=== PATIENT | female | born 1945 | race Caucasian/White ===

== ENCOUNTER 2016-08-10 13:44 | Observation (INO) | payer OTHER ==
[~2016-08-10] VITALS: Ht 157.5 cm; Wt 70.9 kg
[2016-08-10] VITALS (11 sets, daily range): BP systolic 167–200; BP diastolic 51–78; PULSE 64–74; RESP 16–18; TEMP 97.8–98.6; O2SAT 96–99
[~2016-08-10 13:44] MED LIST: 1-ME1LIQ PO; ALAV10TA PO; ASPI81TA82 PO; BACL10TA PO; CHOL1CAP6 PO; COZA100T PO; GLIP5 PO; GLUC10TA3 PO; HIGHTAB3 PO; JANU100T PO; LEFL20 PO; LEVO75TA3 PO; LOVA20TA PO; METF500 PO; OMEP20TA39 PO; SPIR25TA PO; TYLE650T4 PO; ULTR50TA PO; VENTAER INH
[2016-08-10] MEDS ORDERED: SODIUM CHLORIDE 0.9% FLUSH 5 ML FLUSH IVF PRN (14:15)
[2016-08-10] MEDS ORDERED: GLIP5TAB8 PO (14:23)
[2016-08-10] MEDS ORDERED: METF1000 PO (14:23)
[2016-08-10] MEDS ORDERED: SPIR25TA PO (14:23)
[2016-08-10] MEDS ORDERED: OMEP40CA2 PO (14:23)
[2016-08-10] MEDS ORDERED: CHOL1TAB42 (14:23)
[2016-08-10] MEDS ORDERED: LEVO75TA3 PO (14:23)
[2016-08-10] MEDS ORDERED: LOSA100T PO (14:23)
[2016-08-10] MEDS ORDERED: AMLO10TA2 PO (14:23)
--- NOTE | 2016-08-10 14:28 | PD ---
HPI Chief Complaint: Abnormal Results Time Seen by Provider: 13:58 Travel History International Travel<30 days: No Contact w/Intl Traveler<30days: No Traveled to known affect area: No History of Present Illness HPI Patient 70-year-old female with history of iron deficiency anemia and cirrhosis of the liver presents to emergency department today for hemoglobin of 7.6. Patient is followed by Do Sheikh she had repeat routine lab work the other day and was sent to the emergency department today after the results show that she had a low hemoglobin. 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 Patient denies any diarrhea nausea emesis blood in the stool or melanotic stools recently. She states that she has been feeling a little weak. No fevers. PFSH Past Medical History Arthritis: Yes (PSORIATIC) Autoimmune Disease: Yes Cardiovascular Problems: Yes (HTN) High Cholesterol: Yes Diabetes: Yes (TYPE 2) Patient Takes Glucophage: Yes Diminished Hearing: No GERD: Yes (ESOPHAGEAL VARICES) Hypertension: Yes Musculoskeletal: Yes Immunizations Current: Yes Thyroid Disease: Yes Tetanus Vaccination: < 5 Years Influenza Vaccination: Yes ?: Not Tubal Ligation: Yes Past Surgical History Cholecystectomy: Yes Oral Surgery: Yes Social History Alcohol Use: No Tobacco Use: No Substance Use: No Allergies-Medications (Allergen,Severity, Reaction): Coded Allergies: Erythromycins (Verified Allergy, Severe, VOMITING, 08/10/16) Penicillin (Verified Allergy, Mild, hives, 08/10/16) Sulfa (Verified Allergy, Mild, hives, 08/10/16) Reported Meds & Prescriptions Reported Meds & Active Scripts Active Reported Vitamin D-3 (Cholecalciferol) 2,000 Unit Tab Omeprazole 40 Mg Cap 40 Mg PO DAILY Glipizide 5 Mg Tab 5 Mg PO BIDAC Take 30 minutes before a meal Spironolactone 25 Mg Tab 25 Mg PO DAILY Amlodipine (Amlodipine Besylate) 10 Mg Tab 10 Mg PO DAILY Metformin (Metformin HCl) 1,000 Mg Tab 1,000 Mg PO BIDPC With meals Levothyroxine (Levothyroxine Sodium) 75 Mcg Tab 75 Mcg PO DAILY Losartan (Losartan Potassium) 100 Mg Tab 100 Mg PO DAILY Review of Systems Except as stated in HPI: all other systems reviewed are Neg Physical Exam Narrative GENERAL: [Well-developed well-nourished no apparent distress, quite pleasant SKIN: Warm and dry. HEAD: Atraumatic. Normocephalic. EYES: Pupils equal and round. No scleral icterus. No injection or drainage. ENT: No nasal bleeding or discharge. Mucous membranes pink and moist. NECK: Trachea midline. No JVD. CARDIOVASCULAR: Regular rate and rhythm. No murmur appreciated. RESPIRATORY: No accessory muscle use. Clear to auscultation. Breath sounds equal bilaterally. GASTROINTESTINAL: Abdomen soft, non-tender, nondistended. Hepatic and splenic margins not palpable. MUSCULOSKELETAL: No obvious deformities. No clubbing. No cyanosis. No edema. NEUROLOGICAL: Awake and alert. No obvious cranial nerve deficits. Motor grossly within normal limits. Normal speech. PSYCHIATRIC: Appropriate mood and affect; insight and judgment normal. Data Data Last Documented VS Vital Signs Date Time Temp Pulse Resp B/P Pulse Ox O2 Delivery O2 Flow Rate FiO2 08/10/16 14:17 99 Room Air 08/10/16 13:50 98.3 74 18 178/51 Orders Complete Blood Count With Diff (08/10/16 14:11) Comprehensive Metabolic Panel (08/10/16 14:11) Prothrombin Time / Inr (Pt) (08/10/16 14:11) Act Partial Throm Time (Ptt) (08/10/16 14:11) Urinalysis - C+S If Indicated (08/10/16 14:11) Iv Access Insert/Monitor (08/10/16 14:11) Ecg Monitoring (08/10/16 14:11) Oximetry (08/10/16 14:11) Sodium Chloride 0.9% Flush (Ns Flush) (08/10/16 14:15) Red Blood Cells (Rbc) (08/10/16 15:46) Blood Product Administration .UPON TRANSFUSION (08/10/16 15:46) Sodium Chlor 0.9% 250 Ml Inj (Ns 250 Ml (08/10/16 16:00) Red Blood Cells (Rbc) (08/10/16 16:01) Type And Screen (08/10/16 16:01) Labs Laboratory Tests Test 08/10/16 08/10/16 14:30 14:40 Urine Collection Type VOIDED Urine Color YELLOW Urine Turbidity CLEAR Urine pH 6.0 Urine Specific [place] 1.011 Urine Protein NEG mg/dL Urine Glucose (UA) 100 mg/dL Urine Ketones NEG mg/dL Urine Occult Blood NEG Urine Nitrite NEG Urine Bilirubin NEG Urine Leukocyte Esterase NEG Urine WBC 0-2 /hpf Urine Squamous Epithelial 6-8 /hpf Cells Urine Bacteria RARE /hpf Urine Yeast (Budding) RARE Microscopic Urinalysis Comment CULT NOT INDICATED White Blood Count 8.0 TH/MM3 Red Blood Count 3.29 MIL/MM3 Hemoglobin 7.9 GM/DL Hematocrit 24.7 % Mean Corpuscular Volume 75.0 FL Mean Corpuscular Hemoglobin 24.1 PG Mean Corpuscular Hemoglobin 32.1 % Concent Red Cell Distribution Width 18.1 % Platelet Count 176 TH/MM3 Mean Platelet Volume 8.8 FL Neutrophils (%) (Auto) 75.9 % Lymphocytes (%) (Auto) 12.7 % Monocytes (%) (Auto) 9.2 % Eosinophils (%) (Auto) 1.5 % Basophils (%) (Auto) 0.7 % Neutrophils # (Auto) 6.1 TH/MM3 Lymphocytes # (Auto) 1.0 TH/MM3 Monocytes # (Auto) 0.7 TH/MM3 Eosinophils # (Auto) 0.1 TH/MM3 Basophils # (Auto) 0.1 TH/MM3 CBC Comment AUTO DIFF Differential Comment AUTO DIFF CONFIRMED Platelet Estimate NORMAL Platelet Morphology Comment NORMAL Ovalocytes 1+ Prothrombin Time 12.4 SEC Prothromb Time International 1.1 RATIO Ratio Activated Partial 25.9 SEC Thromboplast Time Sodium Level 140 MEQ/L Potassium Level 3.9 MEQ/L Chloride Level 107 MEQ/L Carbon Dioxide Level 19.9 MEQ/L Anion Gap 13 MEQ/L Blood Urea Nitrogen 13 MG/DL Creatinine 0.96 MG/DL Estimat Glomerular Filtration 58 ML/MIN Rate Random Glucose 185 MG/DL Calcium Level 9.3 MG/DL Total Bilirubin 1.2 MG/DL Aspartate Amino Transf 32 U/L (AST/SGOT) Alanine Aminotransferase 22 U/L (ALT/SGPT) Alkaline Phosphatase 91 U/L Total Protein 7.3 GM/DL Albumin 3.5 GM/DL [facility] Medical Decision Making Medical Screen Exam Complete: Yes Emergency Medical Condition: Yes Allan Alvarado MD Aug 10, 2016 14:27
[2016-08-10 15:07] LABS: AUTOMATED NEUTROPHIL # 6.1 TH/MM3 (1.8-7.7); BASOPHIL # 0.1 TH/MM3 (0-0.2); BASOPHIL % 0.7 % (0.0-2.0); EOSINOPHIL # 0.1 TH/MM3 (0-0.4); EOSINOPHIL % 1.5 % (0.0-4.0); HEMATOCRIT 24.7 % (35.0-46.0); LYMPH % 12.7 % (9.0-44.0); MEAN CORPUSCULAR HEMOGLOBIN 24.1 PG (27.0-34.0); MEAN CORPUSCULAR HGB CONC 32.1 % (32.0-36.0); MONO % 9.2 % (0.0-8.0); NEUT % 75.9 % (16.0-70.0); PLATELET COUNT 176 TH/MM3 (150-450); RED BLOOD COUNT 3.29 MIL/MM3 (4.00-5.30); RED CELL DISTRIBUTION WIDTH 18.1 % (11.6-17.2)
[2016-08-10 15:08] LABS: BLOOD, URINE NEG (NEG); GLUCOSE,URINE 100 mg/dL (NEG); KETONE, URINE NEG (NEG); NITRITE,URINE NEG (NEG)
[2016-08-10 15:13] LABS: HEMO FLAGS AUTO DIFF
[2016-08-10 15:26] LABS: CHLORIDE 107 MEQ/L (98-107); POTASSIUM 3.9 MEQ/L (3.5-5.1); SODIUM (NA) 140 MEQ/L (136-145)
[2016-08-10 15:29] LABS: ANION GAP 13 MEQ/L (5-15); APTT (PATIENT) 25.9 SEC (24.3-30.1); BICARBONATE 19.9 MEQ/L (21.0-32.0); INTERNATIONAL NORMALIZED RATIO 1.1 RATIO; PROTHROMBIN TIME - PATIENT 12.4 SEC (9.8-11.6)
[2016-08-10 15:30] LABS: BLOOD UREA NITROGEN 13 MG/DL (7-18)
[2016-08-10 15:32] LABS: ALT (GPT) 22 U/L (10-53); AST (GOT) 32 U/L (15-37)
[2016-08-10 15:33] LABS: GLOMERULAR FILTRATION RATE 58 ML/MIN (>89)
[2016-08-10 15:34] LABS: TOTAL BILIRUBIN ADULT 1.2 MG/DL (0.2-1.0)
[2016-08-10 15:34] LABS: METHOD OF COLLECTION VOIDED; URINE COLOR YELLOW (YELLW/STRAW)
[2016-08-10 15:35] LABS: BACTERIA, URINE RARE /hpf; WBC, URINE 0-2 /hpf (0-5)
[2016-08-10 15:35] LABS: ALKALINE PHOSPHATASE 91 U/L (45-117)
[2016-08-10 15:36] LABS: COMMENT (UR) CULT NOT INDICATED; CULTURE IF INDICATED CULT NOT INDICATED
[2016-08-10 15:46] LABS: OVALOCYTES 1+ (NORMAL); PLATELET ESTIMATE SMEAR NORMAL (NORMAL); PLATELET MORPHOLOGY NORMAL (NORMAL); SCAN/DIFF AUTO DIFF CONFIRMED
[2016-08-10] MEDS ORDERED: SODIUM CHLOR 0.9% 250 ML INJ 250 ML IV ONE (16:00)
--- NOTE | 2016-08-10 16:20 | PD ---
HPI Chief Complaint: Abnormal Results Time Seen by Provider: 13:58 Travel History International Travel<30 days: No Contact w/Intl Traveler<30days: No Traveled to known affect area: No History of Present Illness HPI Patient is a 70-year-old female presents to emergency department today for evaluation of low hemoglobin. Patient states that she had routine laboratory drawn by her primary care physician on Wednesday (2 days ago) and hemoglobin at that time was 7.4. She received the results today and was told to come to the emergency department by her primary care physician. Patient states she's been having some mild weakness but denies any emesis denies any blood in the stool or dark stool. Patient states that she has had have recurrent endoscopies out of [place] secondary to insurance reasons. 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 Geraldine aBin. [facility] Past Medical History Arthritis: Yes (PSORIATIC) Autoimmune Disease: Yes Cardiovascular Problems: Yes (HTN) High Cholesterol: Yes Diabetes: Yes (TYPE 2) Patient Takes Glucophage: Yes Diminished Hearing: No GERD: Yes (ESOPHAGEAL VARICES) Hypertension: Yes Musculoskeletal: Yes Immunizations Current: Yes Thyroid Disease: Yes Tetanus Vaccination: < 5 Years Influenza Vaccination: Yes ?: Not Tubal Ligation: Yes Past Surgical History Cholecystectomy: Yes Oral Surgery: Yes Social History Alcohol Use: No Tobacco Use: No Substance Use: No Allergies-Medications (Allergen,Severity, Reaction): Coded Allergies: Erythromycins (Verified Allergy, Severe, VOMITING, 08/10/16) Penicillin (Verified Allergy, Mild, hives, 08/10/16) Sulfa (Verified Allergy, Mild, hives, 08/10/16) Reported Meds & Prescriptions Reported Meds & Active Scripts Active Reported Vitamin D-3 (Cholecalciferol) 2,000 Unit Tab Omeprazole 40 Mg Cap 40 Mg PO DAILY Glipizide 5 Mg Tab 5 Mg PO BIDAC Take 30 minutes before a meal Spironolactone 25 Mg Tab 25 Mg PO DAILY Amlodipine (Amlodipine Besylate) 10 Mg Tab 10 Mg PO DAILY Metformin (Metformin HCl) 1,000 Mg Tab 1,000 Mg PO BIDPC With meals Levothyroxine (Levothyroxine Sodium) 75 Mcg Tab 75 Mcg PO DAILY Losartan (Losartan Potassium) 100 Mg Tab 100 Mg PO DAILY Review of Systems Except as stated in HPI: all other systems reviewed are Neg Physical Exam Narrative GENERAL: Well-developed well-nourished quite pleasant in no apparent distress. SKIN: Warm and dry. HEAD: Atraumatic. Normocephalic. EYES: Pupils equal and round. No scleral icterus. No injection or drainage. ENT: No nasal bleeding or discharge. Mucous membranes pink and moist. NECK: Trachea midline. No JVD. CARDIOVASCULAR: Regular rate and rhythm. No murmur appreciated. RESPIRATORY: No accessory muscle use. Clear to auscultation. Breath sounds equal bilaterally. GASTROINTESTINAL: Abdomen soft, non-tender, nondistended. Hepatic and splenic margins not palpable. MUSCULOSKELETAL: No obvious deformities. No clubbing. No cyanosis. No edema. NEUROLOGICAL: Awake and alert. No obvious cranial nerve deficits. Motor grossly within normal limits. Normal speech. PSYCHIATRIC: Appropriate mood and affect; insight and judgment normal. Data Data Last Documented VS Vital Signs Date Time Temp Pulse Resp B/P Pulse Ox O2 Delivery O2 Flow Rate FiO2 08/10/16 17:30 64 18 171/71 98 Room Air 08/10/16 13:50 98.3 Orders Complete Blood Count With Diff (08/10/16 14:11) Comprehensive Metabolic Panel (08/10/16 14:11) Prothrombin Time / Inr (Pt) (08/10/16 14:11) Act Partial Throm Time (Ptt) (08/10/16 14:11) Urinalysis - C+S If Indicated (08/10/16 14:11) Iv Access Insert/Monitor (08/10/16 14:11) Ecg Monitoring (08/10/16 14:11) Oximetry (08/10/16 14:11) Sodium Chloride 0.9% Flush (Ns Flush) (08/10/16 14:15) Blood Product Administration .UPON TRANSFUSION (08/10/16 15:46) Sodium Chlor 0.9% 250 Ml Inj (Ns 250 Ml (08/10/16 16:00) Red Blood Cells (Rbc) (08/10/16 16:01) Type And Screen (08/10/16 16:01) Admit Order (Ed Use Only) (08/10/16 17:30) Labs Laboratory Tests Test 08/10/16 08/10/16 08/10/16 14:30 14:40 16:15 Urine Collection Type VOIDED Urine Color YELLOW Urine Turbidity CLEAR Urine pH 6.0 Urine Specific [place] 1.011 Urine Protein NEG mg/dL Urine Glucose (UA) 100 mg/dL Urine Ketones NEG mg/dL Urine Occult Blood NEG Urine Nitrite NEG Urine Bilirubin NEG Urine Leukocyte Esterase NEG Urine WBC 0-2 /hpf Urine Squamous Epithelial 6-8 /hpf Cells Urine Bacteria RARE /hpf Urine Yeast (Budding) RARE Microscopic Urinalysis Comment CULT NOT INDICATED White Blood Count 8.0 TH/MM3 Red Blood Count 3.29 MIL/MM3 Hemoglobin 7.9 GM/DL Hematocrit 24.7 % Mean Corpuscular Volume 75.0 FL Mean Corpuscular Hemoglobin 24.1 PG Mean Corpuscular Hemoglobin 32.1 % Concent Red Cell Distribution Width 18.1 % Platelet Count 176 TH/MM3 Mean Platelet Volume 8.8 FL Neutrophils (%) (Auto) 75.9 % Lymphocytes (%) (Auto) 12.7 % Monocytes (%) (Auto) 9.2 % Eosinophils (%) (Auto) 1.5 % Basophils (%) (Auto) 0.7 % Neutrophils # (Auto) 6.1 TH/MM3 Lymphocytes # (Auto) 1.0 TH/MM3 Monocytes # (Auto) 0.7 TH/MM3 Eosinophils # (Auto) 0.1 TH/MM3 Basophils # (Auto) 0.1 TH/MM3 CBC Comment AUTO DIFF Differential Comment AUTO DIFF CONFIRMED Platelet Estimate NORMAL Platelet Morphology Comment NORMAL Ovalocytes 1+ Prothrombin Time 12.4 SEC Prothromb Time International 1.1 RATIO Ratio Activated Partial 25.9 SEC Thromboplast Time Sodium Level 140 MEQ/L Potassium Level 3.9 MEQ/L Chloride Level 107 MEQ/L Carbon Dioxide Level 19.9 MEQ/L Anion Gap 13 MEQ/L Blood Urea Nitrogen 13 MG/DL Creatinine 0.96 MG/DL Estimat Glomerular Filtration 58 ML/MIN Rate Random Glucose 185 MG/DL Calcium Level 9.3 MG/DL Total Bilirubin 1.2 MG/DL Aspartate Amino Transf 32 U/L (AST/SGOT) Alanine Aminotransferase 22 U/L (ALT/SGPT) Alkaline Phosphatase 91 U/L Total Protein 7.3 GM/DL Albumin 3.5 GM/DL Ferritin 32 NG/ML Blood Type A POSITIVE Antibody Screen NEGATIVE Crossmatch Leukocyte-Reduced Red Blood Cells Blood Bank Comment MDM Medical Decision Making Medical Screen Exam Complete: Yes Emergency Medical Condition: Yes Differential Diagnosis Anemia, iron deficiency anemia, cirrhosis. Narrative Course This is a 70-year-old female with a history of iron deficiency anemia receiving iron transfusions as well as a history of cirrhosis with recurrent small-volume variceal bleeds. Patient states that she has been feeling weak but denies any symptoms of bleeding at this time. Patient was discussed with the primary care physician Do Sheikh who states that the patient baseline hemoglobin is at 10. Today she is 7.9. Dr. Garcia suggested transfusion orders for 2 units and follow- up with the oncologist tomorrow. Patient is agreeable this time. Diagnosis Primary Impression: Anemia Admitting Information Admitting Physician Requests: Observation Condition: Stable Allan Alvarado MD Aug 10, 2016 16:20
[2016-08-10] MEDS ORDERED: SODIUM CHLORIDE 0.9% FLUSH 5 ML FLUSH FLUSH PRN (19:15)
[2016-08-10] MEDS: SODIUM CHLORIDE 0.9% FLUSH 5 ML FLUSH FLUSH SCH (21:00)
[2016-08-11] VITALS: BP 198/75; PULSE 71; RESP 18; TEMP 96.3; O2SAT 97
[2016-08-11 04:00] VITALS: BP 150/59; PULSE 60; RESP 16; TEMP 98; O2SAT 95
[2016-08-11] MEDS ORDERED: LEVOTHYROXINE SODIUM 75 MCG TAB PO SCH (06:00)
[2016-08-11] MEDS ORDERED: glipiZIDE 5 MG TAB PO SCH (07:00)
[2016-08-11 07:10] LABS: AUTOMATED NEUTROPHIL # 4.9 TH/MM3 (1.8-7.7); BASOPHIL # 0.1 TH/MM3 (0-0.2); BASOPHIL % 0.9 % (0.0-2.0); EOSINOPHIL # 0.1 TH/MM3 (0-0.4); EOSINOPHIL % 1.8 % (0.0-4.0); HEMATOCRIT 32.3 % (35.0-46.0); HEMO FLAGS DIFF FINAL; LYMPH % 15.7 % (9.0-44.0); LYMPHOCYTE # 1.1 TH/MM3 (1.0-4.8); MEAN CELL VOLUME 79.4 FL (80.0-100.0); MEAN CORPUSCULAR HEMOGLOBIN 26.2 PG (27.0-34.0); MONO % 7.3 % (0.0-8.0); NEUT % 74.3 % (16.0-70.0); PLATELET COUNT 155 TH/MM3 (150-450); RED BLOOD COUNT 4.07 MIL/MM3 (4.00-5.30); RED CELL DISTRIBUTION WIDTH 18.1 % (11.6-17.2); WHITE BLOOD COUNT 6.7 TH/MM3 (4.0-11.0)
[2016-08-11 08:05] VITALS: BP 153/67; PULSE 61; RESP 18; TEMP 97.4; O2SAT 96
[2016-08-11] MEDS ORDERED: metFORMIN HCL 500 MG TAB PO SCH (09:00)
[2016-08-11] MEDS ORDERED: LOSARTAN 50 MG TAB PO SCH (09:00)
[2016-08-11] MEDS ORDERED: SPIRONOLACTONE 25 MG TAB PO SCH (09:00)
[2016-08-11] MEDS ORDERED: PANTOPRAZOLE SOD 40 MG DELAYED RELEASE TAB PO SCH (09:00)
[2016-08-11] MEDS: SODIUM CHLORIDE 0.9% FLUSH 5 ML FLUSH FLUSH SCH (09:06)
--- NOTE | 2016-08-11 11:05 | HHI.DCPOC ---
Discharge Care Plan Diagnosis: (1) Anemia Goals to Promote Your Health * To prevent worsening of your condition and complications * To maintain your health at the optimal level Directions to Meet Your Goals Take your medications as prescribed Follow your dietary instruction Follow activity as directed Keep your appointments as scheduled Take your immunizations and boosters as scheduled If your symptoms worsen call your PCP, if no PCP go to Urgent Care Center or Emergency Room Smoking is Dangerous to Your Health. Avoid second hand smoke Call the 24-hour hour crisis hotline for domestic abuse at Eve Stinson MD Aug 11, 2016 11:05
--- NOTE | 2016-08-11 11:10 | HHI.HP ---
[facility] Service [facility] Primary Care Physician Harry Sheikh Do, MD Admission Diagnosis severe anemia Diagnoses: Chief Complaint: Abnormal labs Travel History International Travel<30 Days: No Contact w/Intl Traveler <30 Da: No Traveled to Known Affected Are: No History of Present Illness Patient [id number] female with a history of recurrent anemia and history of GI bleeding. She hasn't followed by outpatient primary care doctor who did note her labs were abnormal. He presented to the emergency room for blood transfusion due to anemia. Patient had dizziness, fatigue and describes some "fogginess". She feels much better this morning after 2 units of packed red blood cells. She has seen no bleeding, we have seen no bleeding and her hemoglobin has improved from 7.9-10.6. Patient will be discharged home Review of Systems Constitutional: COMPLAINS OF: Fatigue, Dizziness, DENIES: Diaphoretic episodes , Fever, Weight gain, Weight loss, Chills, Change in appetite, Night Sweats Endocrine: DENIES: Abnorml menstrual pattern, Heat/cold intolerance, Polydipsia , Polyuria, Polyphagia Eyes: DENIES: Blurred vision, Diplopia, Eye inflammation, Eye pain, Vision loss , Photosensitivity, Double Vision Respiratory: DENIES: Apneas, Cough, Snoring, Wheezing, Hemoptysis, Sputum production, Shortness of breath Cardiovascular: DENIES: Chest pain, Palpitations, Syncope, Dyspnea on Exertion , PND, Lower Extremity Edema, Orthopnea, Claudication Gastrointestinal: DENIES: Abdominal pain, Black stools, Bloody stools, Constipation, Diarrhea, Nausea, Vomiting, Difficulty Swallowing, Anorexia Genitourinary: DENIES: Abnormal vaginal bleeding, Dysmenorrhea, Dyspareunia, Sexual dysfunction, Urinary frequency, Urinary incontinence, Urgency, Hematuria , Dysuria, Nocturia, Vaginal discharge Musculoskeletal: DENIES: Joint pain, Muscle aches, Stiffness, Joint Swelling, Back pain, Neck pain Integumentary: DENIES: Abnormal pigmentation, Pruritus, Rash, Nail changes, Breast masses, Breast skin changes, Nipple discharge Hematologic/lymphatic: DENIES: Bruising, Lymphadenopathy Immunologic/allergic: DENIES: Eczema, Urticaria Neurologic: DENIES: Abnormal gait, Headache, Localized weakness, Paresthesias, Seizures, Speech Problems, Tremor, Poor Balance Psychiatric: DENIES: Anxiety, Confusion, Mood changes, Depression, Hallucinations, Agitation, Suicidal Ideation, Homicidal Ideation, Delusions Past Family Social History Past Medical History Hypertension Diabetes Past Surgical History Cholecystectomy Reported Medications Reviewed and the medical record Allergies: Coded Allergies: Erythromycins (Verified Allergy, Severe, VOMITING, 08/10/16) Penicillin (Verified Allergy, Mild, hives, 08/10/16) Sulfa (Verified Allergy, Mild, hives, 08/10/16) Active Ordered Medications Reviewed in the medical record Family History No family history of gastrointestinal disorders, her family is "healthy " Social History No current tobacco or alcohol, lives with her spouse Physical Exam Vital Signs Vital Signs Date Time Temp Pulse Resp B/P Pulse Ox O2 Delivery O2 Flow Rate FiO2 08/11/16 08:05 97.4 61 18 153/67 96 08/11/16 04:00 98.0 60 16 150/59 95 08/11/16 00:00 96.3 71 18 198/75 97 08/10/16 22:37 97.8 66 16 96 08/10/16 20:27 97 08/10/16 20:05 68 18 167/78 98 Room Air 08/10/16 20:00 98.2 72 18 179/72 99 08/10/16 19:26 98.6 67 16 175/71 97 Room Air 08/10/16 19:18 98.5 68 17 171/51 98 Room Air 08/10/16 19:18 Room Air 08/10/16 17:30 64 18 171/71 98 Room Air 08/10/16 16:30 64 18 171/77 98 Room Air 08/10/16 15:30 64 18 174/64 98 Room Air 08/10/16 14:30 70 18 200/59 98 Room Air 08/10/16 14:17 99 Room Air 08/10/16 13:50 98.3 74 18 178/51 99 Physical Exam GENERAL: This is a well-nourished, well-developed patient, in no apparent distress. SKIN: No rashes, ecchymoses or lesions. Cool and dry. HEAD: Atraumatic. Normocephalic. No temporal or scalp tenderness. EYES: Pupils equal round and reactive. Extraocular motions intact. No scleral icterus. No injection or drainage. ENT: Nose without bleeding, purulent drainage or septal hematoma. Throat without erythema, tonsillar hypertrophy or exudate. Uvula midline. Airway patent. NECK: Trachea midline. No JVD or lymphadenopathy. Supple, nontender, no meningeal signs. CARDIOVASCULAR: Regular rate and rhythm without murmurs, gallops, or rubs. RESPIRATORY: Clear to auscultation. Breath sounds equal bilaterally. No wheezes , rales, or rhonchi. GASTROINTESTINAL: Abdomen soft, non-tender, nondistended. No hepato-splenomegaly , or palpable masses. No guarding. MUSCULOSKELETAL: Extremities without clubbing, cyanosis, or edema. No joint tenderness, effusion, or edema noted. No calf tenderness. Negative Homans sign bilaterally. NEUROLOGICAL: Awake and alert. Cranial nerves II through XII intact. Motor and sensory grossly within normal limits. Five out of 5 muscle strength in all muscle groups. Normal speech. Laboratory Laboratory Tests Test 08/10/16 08/10/16 08/10/16 08/11/16 14:30 14:40 16:15 05:21 Urine Collection Type VOIDED Urine Color YELLOW Urine Turbidity CLEAR Urine pH 6.0 Urine Specific [place] 1.011 Urine Protein NEG Urine Glucose (UA) 100 Urine Ketones NEG Urine Occult Blood NEG Urine Nitrite NEG Urine Bilirubin NEG Urine Leukocyte Esterase NEG Urine WBC 0-2 Urine Squamous Epithelial 6-8 Cells Urine Bacteria RARE Urine Yeast (Budding) RARE Microscopic Urinalysis Comment CULT NOT INDICATED White Blood Count 8.0 6.7 Red Blood Count 3.29 4.07 Hemoglobin 7.9 10.6 Hematocrit 24.7 32.3 Mean Corpuscular Volume 75.0 79.4 Mean Corpuscular Hemoglobin 24.1 26.2 Mean Corpuscular Hemoglobin 32.1 33.0 Concent Red Cell Distribution Width 18.1 18.1 Platelet Count 176 155 Mean Platelet Volume 8.8 9.4 Neutrophils (%) (Auto) 75.9 74.3 Lymphocytes (%) (Auto) 12.7 15.7 Monocytes (%) (Auto) 9.2 7.3 Eosinophils (%) (Auto) 1.5 1.8 Basophils (%) (Auto) 0.7 0.9 Neutrophils # (Auto) 6.1 4.9 Lymphocytes # (Auto) 1.0 1.1 Monocytes # (Auto) 0.7 0.5 Eosinophils # (Auto) 0.1 0.1 Basophils # (Auto) 0.1 0.1 CBC Comment AUTO DIFF DIFF FINAL Differential Comment AUTO DIFF CONFIRMED Platelet Estimate NORMAL Platelet Morphology Comment NORMAL Ovalocytes 1+ Prothrombin Time 12.4 Prothromb Time International 1.1 Ratio Activated Partial 25.9 Thromboplast Time Sodium Level 140 Potassium Level 3.9 Chloride Level 107 Carbon Dioxide Level 19.9 Anion Gap 13 Blood Urea Nitrogen 13 Creatinine 0.96 Estimat Glomerular Filtration 58 Rate Random Glucose 185 Calcium Level 9.3 Total Bilirubin 1.2 Aspartate Amino Transf 32 (AST/SGOT) Alanine Aminotransferase 22 (ALT/SGPT) Alkaline Phosphatase 91 Total Protein 7.3 Albumin 3.5 Blood Type A POSITIVE Antibody Screen NEGATIVE Crossmatch Leukocyte-Reduced Red Blood Cells Blood Bank Comment Result Diagram: 08/11/16 0521 08/10/16 1440 Assessment and Plan Problem List: (1) Anemia ICD Code: D64.9 Status: Acute Plan: Was seen and treated for acute anemia requiring transfusion. She did well and was discharged after blood transfusion. Hemoglobin from 7.9-10.6 after 2 units of packed red blood cells. There was no evidence of GI bleeding Her hypertension remained stable Assessment and Plan Discharge home Activity unrestricted Diet Eve Dorantes MD Aug 11, 2016 11:09
== END 2016-08-11 11:37 | disposition home or self-care (01) ==
LOC: PHED 13:44 → PHEDA 17:31 → PH3B 20:14
PROVIDERS: ADMIT Hospitalist; ATTEND Hospitalist
DX: D64.9 Anemia, unspecified (principal); R53.1 Weakness; R42 Dizziness and giddiness; I10 Essential (primary) hypertension; E11.9 Type 2 diabetes mellitus without complications; K74.60 Unspecified cirrhosis of liver; K21.9 Gastro-esophageal reflux disease without esophagitis; I85.00 Esophageal varices without bleeding; Z79.84 Long term (current) use of oral hypoglycemic drugs; E07.9 Disorder of thyroid, unspecified; E78.00 Pure hypercholesterolemia, unspecified
CPT/HCPCS: 36430; 80053; 81001; 82728; 85025; 85610; 85730; 86850; 86900; 86901; 86920; 99284; G0378; P9016